=== PATIENT | male | born 1990 | race Caucasian/White ===

== ENCOUNTER 2023-06-24 17:58 | Emergency (ER) | payer MEDICAID, SELFPAY ==
[2023-06-24 18:34] VITALS: BP 127/79; PULSE 90; RESP 17; TEMP 37.1; O2SAT 95; BMI 24.2
--- NOTE | 2023-06-24 18:35 | ED_ITS ---
HPI - Fever General Chief Complaint: General Medical Stated Complaint: fever,,migraine,body aches Time Seen by Provider: 06/24/23 22:44 Source: patient Mode of arrival: ambulatory History of Present Illness HPI Narrative: Patient woke up yesterday with fever and sore throat painful to swallow slight upper cervical lymph node enlargement no cough no shortness of breath does have a headache also with light sensitive as in the past no nausea no vomiting Related Data Previous Rx's Medication Instructions Recorded wrbepqebxl-trwtspnrytxnz-abpmaewm 1 tab PO Q6H PRN pain #20 tabs 06/24/23 50 mg-325 mg-40 mg tablet cefuroxime axetil 500 mg tablet 500 mg PO BID 10 days #20 tabs 06/24/23 Allergies Allergy/AdvReac Type Severity Reaction Status Date / Time amoxicillin [Amoxicillin] Allergy Unknown TROAT AND Unverified 05/23/20 17:57 FACIAL SWELLING From Ultram Allergy Unknown THROAT Uncoded 05/23/20 17:57 SWELLS Review of Systems Review of Systems: Yes all other systems are reviewed and are negative [facility] Past Medical History Attestation statement: The following information was validated with the patient. [facility] Narrative: Appearance: Alert. Oriented X3. No acute distress. Eyes: PERRLA, No Nystagmus ENT: Pharynx normal. Oral Mucosa moist exudate and erythema of the left tonsil Neck: Normal inspection. Neck supple. CVS: Normal heart rate and rhythm. Pulses normal. Respiratory: No respiratory distress. Equal air entry bilateral, no wheezing/rales/rhonchi Abdomen: Soft and nontender. Bowel sounds are present, Skin: Skin warm and dry. Normal skin color. Normal skin turgor. Extremities: No lower extremity edema. No calf tenderness Neuro: Oriented X 3. Physical Exam Vital Signs: Vital Signs: Last Vital Signs Temp 98.3 F 06/24/23 20:20 Pulse 60 06/24/23 20:20 Resp 14 06/24/23 20:20 BP 119/68 06/24/23 20:20 Pulse Ox 100 06/24/23 20:20 O2 Del Method Room Air 06/24/23 18:34 BMI result Body Mass Index 24.2 Appearance: Alert. Oriented X3. No acute distress. ENT: Pharynx normal. Oral Mucosa moist Neck: Normal inspection. Neck supple. Erythema and exudates on tonsils, Upper cervical lymph nodes enlarged CVS: Normal heart rate and rhythm. Pulses normal. Respiratory: No respiratory distress. Equal air entry bilateral, Abdomen: Soft and nontender. Bowel sounds are present, Skin: Skin warm and dry. Normal skin color. Normal skin turgor. Extremities: No lower extremity edema. No calf tenderness Neuro: Oriented X 3. Course Course Course Narrative: RME: 33yo M w/no sig PMHx c/o fever (Tmax 106 temporally), migraine HOBBS w/photophobia, myalgias, & sore throat x yesterday. Last took Ibuprofen @1630. reports decreased PO intake. denies cough, sick contacts, traveled Afebrile in triage orally, +b/l tonsillar erythema & exudates. Uvula midline COVID/FLU, Rapid strep ordered Full HPI, ROS and PE to be performed by primary ED provider. Medical Decision Making Lab Data Labs: Lab Results 06/24/23 06/24/23 Range/Units 19:48 19:49 COVID-19 ([facility]) Negative (Negative) COVID-19 Clin Com See Note Influenza Type A (LIN) Negative (Negative) Influenza Type B (LIN) Negative (Negative) Influenza A & B Note See Note S. pyogenes GrpA LIN Negative (Negative) Discharge Plan Discharge Clinical Impression: Acute bacterial pharyngitis Patient Disposition: Home, Self-Care Instructions: Pharyngitis (ED) Additional Instructions: Drink plenty of fluids and a Motrin for fever and pain take antibiotic as prescribed Medicine for headache as prescribed Prescriptions: New cefuroxime axetil 500 mg tablet 500 mg PO BID 10 Days Qty: 20 0RF gcprbijtyw-mgxkhhupsubvm-csgo 50-325-40 mg tablet 1 tab PO Q6H PRN (Reason: pain) Qty: 20 0RF
[2023-06-24 20:06] LABS: IDNOW Serial# 08D9AD1C; Strep A Nucleic Acid Negative (Negative)
[2023-06-24 20:10] LABS: IDNOW Serial# 9DB6401D
[2023-06-24 20:11] LABS: Influenza A Negative (Negative); Influenza B2 Negative (Negative)
[2023-06-24 20:11] LABS: COVID-19 Test Negative (Negative); IDNOW Serial# BCCEAD1C
[2023-06-24 20:20] VITALS: BP 119/68; PULSE 60; RESP 14; TEMP 36.8; O2SAT 100
[2023-06-24] MEDS: cefuroxime axetiL 500 MG TABLET PO (23:28)
[2023-06-24] MEDS: Butalb/Acetamin/Caff 50/325/40 TABLET 1 TAB PO (23:29)
[2023-06-25 00:07] VITALS: PULSE 76; RESP 16; O2SAT 96
--- NOTE | 2023-06-25 00:08 | PC.NURSE ---
pt medicated per nov. d/c instructions educated to pt. pt reports HOBBS has resolved however sore throat persists. airway patent respirations even and unlabored. sats 96% RA. pt reports will monitor fever and finish full course abx.
== END 2023-06-25 00:09 | disposition home or self-care (01) ==
PROVIDERS: Physician Assistant; Emergency Provider Internal Medicine
DX: J02.9 Acute pharyngitis, unspecified (principal); Z11.52 Encounter for screening for COVID-19
CPT/HCPCS: 87502; 87635; 87651; 99283

== ENCOUNTER 2024-04-19 10:51 | Outpatient (AMB) | payer OTHER, SELFPAY ==
--- NOTE | 2024-04-19 10:51 | MHC.OFFWIV ---
Intake Vital Signs 04/19/24 10:53 Height 5 ft 9 in Weight 155 lb BMI 22.9 BP 138/80 Blood Pressure Location Rt brachial Position Sitting Pulse 76 Pulse Source Pulse Oximeter Temp 98.2 F Temp Source Oral Pulse Oximetry (%) 98 Oxygen Delivery Method Room Air Intake Visit Reasons: White Spots down throat Intake Note: pt c/o white spots in throat and throat pain. Burning while urinating last week, resolved . Concerned ? STI. Started yesterday Patient Tobacco Use Status: Former Tobacco user Allergies amoxicillin [Amoxicillin] Allergy (Unknown, Verified 04/19/24 10:57) TROAT AND FACIAL SWELLING From Ultram Allergy (Unknown, Uncoded 04/19/24 10:57) THROAT SWELLS Do you need a note to return to daycare/school/sports/work: Yes HPI HPI Comments History of Present Illness Details Patient is a 34-year-old male complaining burning with urination that started 3 days ago but seems to have resolved, he is also complaining of white spots in the back of his throat that he noticed 3 or 4 days ago that seems to be getting worse. He denies any cough or congestion or fevers. He does note he has not had sexual relations for the last 6-8 months but did have an interaction with a person 6 days ago. He is worried he might have picked something up. He denies any penile discharge or blood in his urine or increased frequency or urgency. He does state when he was sexually active with his person before, he ended up with a the back of his throat in the rapid strep was negative but they sent cefuroxime to his pharmacy and that cleared up the lesions in the back of his throat. When we tested his urine, he had positive ketones and protein. He did note he was checked for diabetes last year by his PCP because he had ketones in his urine and they could not figure out why. He does note a 25 lb weight loss in the last 5 months that was unintentional, he states his eating habits have not changed. PFSH Social History Patient Tobacco Use Status: Former Tobacco user Review of Systems Const All systems reviewed & are unremarkable except as noted in HPI and below Physical Exam Vital Signs: Last Vital Signs Temp 98.2 F 04/19/24 10:53 Pulse 76 04/19/24 10:53 BP 138/80 04/19/24 10:53 Pulse Ox 98 04/19/24 10:53 Oxygen Delivery Method Room Air 04/19/24 10:53 BMI result Body Mass Index 22.9 Const General: cooperative, healthy appearing, comfortable and no acute distress Orientation/consciousness: patient oriented x3 Limitations: no limitations HEENT Head: Yes normal to inspection Ears: hearing grossly normal bilaterally and external ears normal General nose exam: Normal external nose present Face and sinus: Yes normal facial exam Mouth: Normal oral and palatal mucosa present, lip normal, tongue normal and moist mucous membranes Throat: Yes tonsils normal, Yes uvula midline and Yes posterior oropharynx abnormal (Exudates and a lesion with purulent fluid) Eyes General: appearance normal, both eyes and all related structures Neck Neck: Yes normal visual inspection, Yes full ROM and Yes no lymphadenopathy Resp Effort & Inspection: normal respiratory effort and able to speak in complete sentences Skin General skin exam: no rashes or lesions noted Neuro General: patient oriented x3 Results AMB Rapid Strep AMB Rapid Strep Negative Last Edit by NATE Adams on 04/19/24 11:08 AMB Urinalysis, Automated UA Leukoctes 0 Yessica/uL Last Edit by Artem Garza CCM on 04/19/24 11:09 UA Nitrite Negative Last Edit by Artem Garza CCM on 04/19/24 11:09 UA Urobilinogen 0.2 mg/dL Last Edit by Artem Garza CCM on 04/19/24 11:09 UA Protein 15 mg/dL Last Edit by Artem Garza CCM on 04/19/24 11:09 UA pH 6.0 Last Edit by Artem Garza CCM on 04/19/24 11:09 UA Blood 0 Alfredo/uL Last Edit by Artem Garza CCM on 04/19/24 11:09 UA Specific [place] 1.030 Last Edit by Artem Garza CCM on 04/19/24 11:09 UA Ketone Positive Last Edit by Artem Garza CCM on 04/19/24 11:09 UA Bilirubin 0 mg/dL Last Edit by Artem Garza CCM on 04/19/24 11:09 UA Glucose 0 mg/dL Last Edit by Artem Garza [facility] on 04/19/24 11:09 AMB Random Glucose (hemocue) AMB Random Glucose (hemocue) 112 mg/dL Last Edit by NATE Adams on 04/19/24 11:15 Results Reviewed Results Reviewed: Laboratory Last Values Urine pH (Auto) 6.0 04/19/24 11:03 Specific [place] (Auto) 1.030 04/19/24 11:03 Urine Protein (Auto) 15 mg/dL 04/19/24 11:03 Glucose (UA)(Auto) 0 mg/dL 04/19/24 11:03 Urine Ketones (Auto) Positive 04/19/24 11:03 Urine Blood (Auto) 0 Alfredo/uL 04/19/24 11:03 Urine Nitrite (Auto) Negative 04/19/24 11:03 Urine Bilirubin (Auto) 0 mg/dL 04/19/24 11:03 Urine Urobilinogen (Auto) 0.2 mg/dL 04/19/24 11:03 Leukocyte Esterase (Auto) 0 Yessica/uL 04/19/24 11:03 Strep Scn [facility] Negative 04/19/24 11:03 Assessment & Plan Assessment & Plan (1) Tonsillar exudate: Code(s): J35.8 - Other chronic diseases of tonsils and adenoids Plan: Recommended we wait until we have the test results back from the gonorrhea and chlamydia, we will need to treat if either 1 of those are positive. If those are negative, please send a prescription for cefuroxime 500 mg twice daily for 5 days for strep throat, (allergic to amoxicillin) (2) Protein in urine: Code(s): R80.9 - Proteinuria, unspecified Qualifiers: Proteinuria type: other Qualified Code(s): R80.8 - Other proteinuria Plan: Recommended patient follow up with his PCP at his prescheduled appointment in 1 month about the proteinuria (3) Urine ketones: Code(s): R82.4 - Acetonuria Plan: Point of care in office is 112. Recommended patient follow up with his PCP at his prescheduled appointment in 1 month about the keytones. Did give him red flag warning signs on diabetes, increased thirst and urination. Plan See above Medications: Discontinued cefuroxime axetil Discontinued Reason: Patient Completed Course 500 mg PO BID 10 days 20 tabs 0RF xunnezxmpt-qhkqtrtgkpixb-cnjc 50-325-40 mg Discontinued Reason: Patient Completed Course 1 tab PO Q6H PRN 20 tabs 0RF pain Coding Level of Care Code New Pt Level 4 (59137) Diagnoses Tonsillar exudate J35.8 Other proteinuria R80.8 Proteinuria type: other Urine ketones R82.4
[2024-04-19 10:53] VITALS: BP 138/80; PULSE 76; TEMP 36.8; O2SAT 98; BMI 22.9
== END 2024-04-19 11:26 | disposition home or self-care (01) ==
PROVIDERS: Visit Provider Physician Assistant
DX: J35.8 Other chronic diseases of tonsils and adenoids (principal); R80.8 Other proteinuria; R82.4 Acetonuria; Z13.9 Encounter for screening, unspecified
CPT/HCPCS: 81003; 82948; 87880; 99204

== ENCOUNTER 2024-04-19 11:03 | Outpatient (REF) | payer OTHER, SELFPAY ==
[2024-04-19 16:24] LABS: CT PCR NOT DETECTED (Not Detect.); NG PCR NOT DETECTED (Not Detect.)
[2024-04-24 03:49] LABS: C. Trachomatis RNA TMA, Throat NOT DETECTED; N. gonorrhoeae RNA TMA, Throat NOT DETECTED
== END 2024-04-19 11:04 | disposition home or self-care (01) ==
LOC: HO.LAB 11:03
PROVIDERS: Visit Provider Physician Assistant
DX: Z13.9 Encounter for screening, unspecified (principal)
CPT/HCPCS: 87491; 87591

== ENCOUNTER 2024-04-21 11:41 | Outpatient (AMB) | payer OTHER, SELFPAY ==
--- NOTE | 2024-04-21 11:42 | MHC.OFFWIV ---
Intake Vital Signs 04/21/24 11:47 Weight 155 lb BP 120/86 Blood Pressure Location Lt brachial Position Sitting Pulse 68 Pulse Source Pulse Oximeter Temp 98.3 F Temp Source Oral Pulse Oximetry (%) 98 Oxygen Delivery Method Room Air Intake Visit Reasons: EP still not better/White spots Patient Tobacco Use Status: Former Tobacco user Allergies amoxicillin [Amoxicillin] Allergy (Unknown, Verified 04/19/24 10:57) TROAT AND FACIAL SWELLING From Ultram Allergy (Unknown, Uncoded 04/19/24 10:57) THROAT SWELLS HPI HPI Comments History of Present Illness Details 34 y/o male patient who presents to the walk in clinic with c/o throat pain and generalized malaise. Pt was seen yesterday for similar symptoms. Rapid Strep negative. Throat culture was also sent for NG/GC - results still pending. Today Pt reports not feeling well, has high fevers, fatigue and throat pain. PFSH Social History Patient Tobacco Use Status: Former Tobacco user Review of Systems Const All systems reviewed & are unremarkable except as noted in HPI and below Physical Exam Vital Signs: Last Vital Signs Temp 98.3 F 04/21/24 11:47 Pulse 68 04/21/24 11:47 BP 120/86 04/21/24 11:47 Pulse Ox 98 04/21/24 11:47 Oxygen Delivery Method Room Air 04/21/24 11:47 Const General: comfortable and no acute distress Orientation/consciousness: patient oriented x3 HEENT Head: Yes normocephalic Ears: external ears normal and TM's normal bilaterally Mouth: Abnormal oral and palatal mucosa present erythematous Throat: Yes uvula midline and Yes abnormal tonsil (Enlarged +1 ) Resp Effort & Inspection: normal respiratory effort and able to speak in complete sentences Auscultation: clear to auscultation bilaterally, no crackles, no rales, no rhonchi and no wheezes Cardio Heart sounds: S1 normal heart sound present and S2 normal heart sound present Skin General skin exam: no rashes or lesions noted Neuro General: patient oriented x3, gait normal and moves all extremities Psych Speech and movement: Normal speech and movement present Affect: Anxious affect present Attitude: cooperative Assessment & Plan Assessment & Plan (1) Acute pharyngitis: Code(s): J02.9 - Acute pharyngitis, unspecified Qualifiers: Pharyngitis/tonsillitis etiology: unspecified etiology Qualified Code(s): J02.9 - Acute pharyngitis, unspecified Plan: Ordered Doxy (Pt allergic to PCN and there is interaction with cefuroxime) Rest and hydrate well Acetaminophen for pain relief. Medications: New doxycycline hyclate 100 mg PO BID 10 days 20 caps 0RF J02.9 - Acute pharyngitis, unspecified acetaminophen 1,000 mg (2 x 500 mg) PO Q6H PRN 30 caps 0RF fever J02.9 - Acute pharyngitis, unspecified Coding Level of Care Code Est Pt Level 3 (51633) Diagnoses Acute pharyngitis, unspecified etiology J02.9 Pharyngitis/tonsillitis etiology: unspecified etiology Time Spent (min) 15
[2024-04-21 11:47] VITALS: BP 120/86; PULSE 68; TEMP 36.8; O2SAT 98
== END 2024-04-21 12:03 | disposition home or self-care (01) ==
PROVIDERS: Visit Provider Nurse Practitioner Family
DX: J02.9 Acute pharyngitis, unspecified (principal)
CPT/HCPCS: 99213

== ENCOUNTER 2024-07-01 19:02 | Emergency (ER) | payer OTHER, SELFPAY ==
[2024-07-01 19:25] VITALS: BP 141/88; PULSE 63; RESP 16; TEMP 36.8; O2SAT 100; BMI 22.9
--- NOTE | 2024-07-01 21:06 | ED_ITS ---
HPI - Ear Problem General Chief complaint: Ear Problems Stated complaint: left ear pain Time Seen by Provider: 07/01/24 20:58 Source: patient Mode of arrival: ambulatory Limitations: no limitations History of Present Illness ED Provider: PASCALE HGOSH Narrative: 34 yo male with no sig PMH L ear pain x 2 days atraumatic no water activities, no fevers, took tylenol without relief. Has some yellow drainage out the ear. Feels like he cannot hear out the ear Complaint: ear pain Location: left ear Duration: constant Severity: moderate Relieving factors: nothing Exacerbating factors: position of head Discharge from ear: yes - purulent Associated symptoms ear: decreased hearing, headache and ear swelling Treatment prior to arrival: none Related Data Home Medications ?Medication ?Instructions ?Recorded ?Confirmed methadone 10 mg/mL oral concentrate 30 mg PO DAILY 04/19/24 Previous Rx's ?Medication ?Instructions ?Recorded acetaminophen 500 mg capsule 1,000 mg (2 x 500 mg) PO Q6H PRN 04/21/24 fever #30 caps doxycycline hyclate 100 mg capsule 100 mg PO BID 10 days #20 caps 04/21/24 cefuroxime axetil 500 mg tablet 500 mg PO BID 7 days #14 tabs 07/01/24 ofloxacin 0.3 % ear drops 10 drp otic (ears) DAILY 7 days #5 07/01/24 mL Allergies Allergy/AdvReac Type Severity Reaction Status Date / Time amoxicillin [Amoxicillin] Allergy Unknown TROAT AND Verified 07/01/24 19:27 FACIAL SWELLING From Ultram Allergy Unknown THROAT Uncoded 04/19/24 10:57 [place] Review of Systems Review of Systems: Constitutional : No Fever, No Chills, No Fatigue ENT/Mouth : No sore throat, No Rhinorrhea, pos ear pain Eyes: No Eye Pain, No Swelling, No Redness Cardiovascular : No Chest Pain, No SOB, No Dyspnea on Exertion Respiratory : No Cough, No Sputum Gastrointestinal : No Nausea, No Vomiting, No Diarrhea, No abdominal Pain Genitourinary : No Dysuria, No Urinary Frequency, No Hematuria, Musculoskeletal : No joint pain, No Myalgias, No Joint Swelling Skin : No Skin Lesions, No rash Neuro : No Weakness, No Numbness, No Dizziness, positive Headache All other systems reviewed and are negative PMFSH Past Medical History Attestation statement: The following information was validated with the patient. Source: old records reviewed Medical History Tonsillar exudate Social History Social History Patient Tobacco Use Status: Former Tobacco user Advance Directives: No Advance Directives Information Provided: Yes Physical Exam Vital Signs: Vital Signs: Last Vital Signs Temp 98.3 F 07/01/24 19:25 Pulse 63 07/01/24 19:25 Resp 16 07/01/24 19:25 BP 141/88 H 07/01/24 19:25 Pulse Ox 100 07/01/24 19:25 O2 Del Method Room Air 07/01/24 19:25 BMI result Body Mass Index 22.9 Appearance: Alert. Oriented X3. No acute distress. Eyes: Pupils equal, round and reactive to light. ENT: Pharynx normal. L mastoid no ttp, L TM retracted red I do not see a perforation on exam there is effusion noted, L canal is moderately swollen with erythema and yellow drainage Neck: Normal inspection. Neck supple. CVS: Normal heart rate and rhythm. Pulses normal. Respiratory: No respiratory distress. Breath sounds normal. Abdomen: atraumatic Skin: Skin warm and dry. Normal skin color. Extremities: No lower extremity edema. Neuro: Oriented X 3. No motor deficit. No sensory deficit. Medical Decision Making Medical Decision Making MDM Narrative: 34 yo male with L ear pain and concern for AOM and externa no signs of malignant external otitis at this time will start on ceftin - he denies really knowing a bout his allergy states he was little will try ceftin and topical ofloxacin. He has no signs of mastoid ttp either. Will observe after ceftin dose Differential Diagnosis Differential Diagnoses: The differential diagnosis associated with the presentation includes AOM and otitis externa Admission/Observation Consideration of admission/observation: Escalation of care including admission/observation considered not toxic no signs of mastoid ttp can be managed with topical and oral therapy External Record Review External record reviewed: Office record Prescription Management I considered prescription management with: Antibiotic Discharge Plan Discharge Clinical Impression: Otitis externa Qualifiers: Otitis externa type: diffuse Chronicity: acute Laterality: left Qualified Code(s): H60.312 - Diffuse otitis externa, left ear Otitis media Qualifiers: Otitis media type: suppurative Chronicity: acute Laterality: left Recurrence: non-recurrent Spontaneous tympanic membrane rupture: without spontaneous rupture Qualified Code(s): H66.002 - Acute suppurative otitis media without spontaneous rupture of ear drum, left ear Patient Disposition: Home, Self-Care Instructions: Otitis Externa (ED), Ear Infection (ED) Additional Instructions: no water in L ear for 1 week have your doctor or urgent care recheck ear drum in one week can use ear plug or cotton ball with vaseline to prevent water in the ear return for worsening pain, fevers, swelling or any other concerns Prescriptions: New ofloxacin 0.3 % drops 10 drp otic (ears) DAILY 7 Days Qty: 5 0RF cefuroxime axetil 500 mg tablet 500 mg PO BID 7 Days Qty: 14 0RF No Action doxycycline hyclate 100 mg capsule 100 mg PO BID 10 Days Qty: 20 0RF acetaminophen 500 mg capsule 1,000 mg PO Q6H PRN (Reason: fever) Qty: 30 0RF methadone 10 mg/mL concentrate 30 mg PO DAILY Print Language: Luxembourgish
[2024-07-01] MEDS: cefuroxime axetiL 500 MG TABLET PO (21:59)
[2024-07-01] MEDS: Ketorolac Tromethamine 30 MG/ML VIAL IM (21:59)
[2024-07-01 22:02] VITALS: BP 133/82; PULSE 53; RESP 16; TEMP 36.7; O2SAT 99
[2024-07-01 22:05] VITALS: BP 133/82; PULSE 53; RESP 16; TEMP 36.7; O2SAT 99
== END 2024-07-01 22:36 | disposition home or self-care (01) ==
PROVIDERS: Emergency Provider Emergency Medicine
DX: H60.312 Diffuse otitis externa, left ear (principal); H66.002 Acute suppurative otitis media without spontaneous rupture of ear drum, left ear; H92.02 Otalgia, left ear
CPT/HCPCS: 96372; 99283; 99284; J1885

== ENCOUNTER 2024-07-05 09:42 | Outpatient (AMB) | payer OTHER, SELFPAY ==
[2024-07-05 10:06] VITALS: BP 128/88; PULSE 81; TEMP 37; O2SAT 98; BMI 23.5
--- NOTE | 2024-07-05 10:06 | MHC.OFFWIV ---
Intake Vital Signs 07/05/24 10:06 Height 5 ft 9 in Weight 159 lb 2 oz BMI 23.5 BP 128/88 Blood Pressure Location Lt brachial Position Sitting Pulse 81 Pulse Source Pulse Oximeter Temp 98.6 F Temp Source Oral Pulse Oximetry (%) 98 Oxygen Delivery Method Room Air Intake Visit Reasons: EP lost hearing in LT ear Intake Note: Pt is here today was in ER for Inner and Outer ear infection was treated , pt states no more pain or infection. Pt will like LT ear flushed. Patient Tobacco Use Status: Former Tobacco user Allergies amoxicillin [Amoxicillin] Allergy (Unknown, Verified 07/05/24 10:11) TROAT AND FACIAL SWELLING From Ultram Allergy (Unknown, Uncoded 04/19/24 10:57) THROAT SWELLS Do you need a note to return to daycare/school/sports/work: No HPI HPI Comments History of Present Illness Details Patient is a 34-year-old male complaining of continued hearing loss in his right ear. He tells me he was treated in the emergency department a week ago for a double ear infection with antibiotics. He has been taking his antibiotics as prescribed and just took his last dose this morning. He tells me he has continued hearing loss in the ear. [facility] Medical History Tonsillar exudate Social History Patient Tobacco Use Status: Former Tobacco user Review of Systems Const All systems reviewed & are unremarkable except as noted in HPI and below Physical Exam Vital Signs: Last Vital Signs Temp 98.6 F 07/05/24 10:06 Pulse 81 07/05/24 10:06 BP 128/88 07/05/24 10:06 Pulse Ox 98 07/05/24 10:06 Oxygen Delivery Method Room Air 07/05/24 10:06 BMI result Body Mass Index 23.5 Const General: cooperative, healthy appearing, comfortable and no acute distress Orientation/consciousness: patient oriented x3 HEENT Head: Yes normal to inspection Ears: mastoids normal, Abnormal EAC present cerumen impaction on the right and unable to visualize TM (cerumen blockage) on the right General nose exam: Normal external nose present Face and sinus: Yes normal facial exam Resp Effort & Inspection: normal respiratory effort and able to speak in complete sentences Neuro General: patient oriented x3 Office Procedures Cerumen Removal From which ear canal was the cerumen removed: right Removal: irrigation and otoscope w/curette Notes: patient tolerated procedure well, no complications and ear canal clear [id number] Irrigation/Lavage Assessment & Plan Assessment & Plan (1) Impacted cerumen of right ear: Code(s): H61.21 - Impacted cerumen, right ear Plan: We were able to remove cerumen but patient's hearing did not improve. Recommended he follow up with an ENT doctor or his PCP if hearing not restored. Plan see above Coding Level of Care Code New Pt Level 3 (26140) Diagnoses Impacted cerumen of right ear H61.21 CPT Codes Office Procedure - CPT: 17890-Ciq Irrigation/Lavage ([id number])
== END 2024-07-05 11:53 | disposition home or self-care (01) ==
PROVIDERS: Visit Provider Physician Assistant
DX: H91.91 Unspecified hearing loss, right ear (principal); H61.21 Impacted cerumen, right ear

== ENCOUNTER → 2024-07-05 09:42 | Outpatient (BNVA) | payer OTHER, SELFPAY | PROVIDERS: Visit Provider Physician Assistant | DX: H61.21 Impacted cerumen, right ear (principal) | CPT/HCPCS: 69210; 99202 ==